=== PATIENT | female | born 1995 | race Caucasian/White ===

== ENCOUNTER 2020-04-14 20:10 | Observation (INO) | payer MEDICAID ==
[~2020-04-14] VITALS: Ht 165 cm; Wt 75.7 kg
[2020-04-14] MEDS ORDERED: BETAMETH ACET/BETAMETH NA PH 30 MG/5 ML VIAL IM ONE (20:40)
[2020-04-18] MEDS ORDERED: PNV91TAB10 PO (14:05)
== END 2020-04-14 21:20 | disposition home or self-care (01) ==
LOC: MLD 20:10
PROVIDERS: ADMIT Obstetrics & Gynecology; ATTEND Obstetrics & Gynecology
DX: O60.03 Preterm labor without delivery, third trimester (principal); O34.219 Maternal care for unspecified type scar from previous cesarean delivery; Z87.59 Personal history of other complications of pregnancy, childbirth and the puerperium; Z90.49 Acquired absence of other specified parts of digestive tract; Z3A.35 35 weeks gestation of pregnancy
CPT/HCPCS: 59025; 96372; G0378; J0702

== ENCOUNTER 2020-04-15 20:18 | Observation (INO) | payer MEDICAID ==
[~2020-04-15] VITALS: Ht 165 cm; Wt 73.0 kg
[2020-04-15] MEDS ORDERED: BETAMETH ACET/BETAMETH NA PH 30 MG/5 ML VIAL IM ONE ×2 (21:00→21:29)
[2020-04-18] MEDS ORDERED: PNV91TAB10 PO (14:05)
== END 2020-04-15 21:50 | disposition home or self-care (01) ==
LOC: MLD 20:18
PROVIDERS: ADMIT Obstetrics & Gynecology; ATTEND Obstetrics & Gynecology
DX: O60.03 Preterm labor without delivery, third trimester (principal); O34.219 Maternal care for unspecified type scar from previous cesarean delivery; Z90.49 Acquired absence of other specified parts of digestive tract; Z3A.35 35 weeks gestation of pregnancy
CPT/HCPCS: 96372; G0378; J0702